=== PATIENT | male | born 1995 | race Hispanic/Latino ===

== ENCOUNTER 2020-01-26 12:00 | Emergency (ER) | payer BC ==
[2020-01-26] MEDS ORDERED: CEFTRIAXONE SODIUM 500 MG VIAL ONE (12:42)
[2020-01-26] MEDS ORDERED: LIDOCAINE HCL-MPF 1% 2ML VIAL ONE (12:43)
[2020-01-26] MEDS ORDERED: AZITHROMYCIN 250 MG TABLET PO ONE (12:43)
== END 2020-01-26 13:15 | disposition home or self-care (01) ==
LOC: EDH 12:00
DX: R30.0 Dysuria (principal)
CPT/HCPCS: 81003; 96372; 99284; J0696; J3490